=== PATIENT | female | born 1930 | race Caucasian/White ===

== ENCOUNTER 2017-05-24 12:40 | Inpatient (IN) | payer MEDICARE, BC ==
--- NOTE | ~2017-05-24 | EKG ---
PATIENT: VIRI TAYLOR UNIT #: [id number] Ventricular Rate: 108 BPM Atrial Rate: 101 BPM QRS Duration: 80 ms Q-T Interval: 366 ms QTC Calculation(Bezet): 490 ms Calculated R Downey: 99 degrees Calculated T Downey: -9 degrees Diagnosis Line: Atrial fibrillation with rapid ventricular Diagnosis Line: response with premature ventricular or aberrantly Diagnosis Line: conducted complexes Diagnosis Line: Rightward axis Diagnosis Line: Abnormal QRS-T angle, consider primary T wave Diagnosis Line: abnormality Diagnosis Line: Abnormal ECG Diagnosis Line: When compared with ECG of 24-MAY-2017 12:53, Diagnosis Line: (unconfirmed) Diagnosis Line: Questionable change in QRS axis Diagnosis Line: Confirmed by DESTINY DEAN MD ([id number]) on Diagnosis Line: 05/26/2017 10:03:05 AM INTERPRETING MD: YOLANDA
--- NOTE | ~2017-05-24 | DS ---
Unit #: [id number] #: [id number] Patient: VIRI TAYLOR [id number] [address] [address] [id number] I MR#: [id number] NAME: VIRI TAYLOR. ROOM: 556 Age: 87 Sex: F Admission Date: 05/24/2017 : 1930 Discharge Date: 05/27/2017 Attending Physician: Dmitriy Corral M.D. Primary Care Physician: Herbie Winchester M.D. DISCHARGE SUMMARY DISCHARGE DIAGNOSES 1. Acute on chronic diastolic congestive heart failure, now compensated. 2. Permanent atrial fibrillation, on chronic anticoagulation with Savaysa. 3. 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 4. Hypertension. 5. Hyperlipidemia. 6. History of chronic kidney disease. 7. History of esophageal strictures. 8. Mild anemia. HOSPITAL COURSE The patient presented to the hospital with multiple complaints, however, more specifically shortness of breath and weakness. She was admitted for CHF exacerbation and persistent atrial fibrillation with rapid ventricular response. She was given Cardizem IV, as well as started on IV diuretics. The patient was placed on strict I/Os. In the emergency department, initial EKG revealed atrial fibrillation with RVR at 129 beats per minute. BNP was elevated at 425. Initial cardiac enzymes were negative. Chest x-ray revealed bibasilar densities representing edema versus pneumonia. According to the note, the patient quit taking her Savaysa due to new onset symptoms including weakness, confusion, and appetite issues, and states she had not been taking it for the last two weeks prior to her admission. She has been on Eliquis in the hospital here at 2.5 mg p.o. b.i.d. and appears to be tolerating that without any complications. She has been seen and evaluated by Dr. Kern today. He feels she is stable for discharge home. Serial enzymes throughout this admission remained indeterminant. Patient denies any complaints of chest pain. During the hospitalization, she was started on digoxin. She received a loading dose and is currently on 0.125 mg tablet p.o. daily. Her metoprolol succinate that she was on at home was also increased to 50 mg p.o. b.i.d. CONSULTANTS None. Unit #: [id number] #: [id number] Patient: VIRI TAYLOR DIAGNOSTIC STUDIES LABORATORY: Glucose 93, BUN 37, creatinine 1.2, sodium 137, potassium 4.5, chloride 102, and CO2 of 28. Magnesium is 1.4, and that will be replaced. Troponins were indeterminant, highest was 0.07. TSH was 3.12. Fasting lipid profile was unremarkable except for an HDL of 31. Hemoglobin 10.9, hematocrit 34.6, WBC 4.2, and platelet count 120,000. Telemetry remains atrial fibrillation with controlled ventricular rate. PHYSICAL EXAMINATION VITAL SIGNS: Temperature 98.4, respiratory rate 16, pulse 82-104, and blood pressure 134/81. GENERAL: Patient is awake, alert, and oriented. She follows commands appropriately. She moves all extremities equally. HEENT: Pupils are equal and reactive. NECK: Supple. No JVD, no hepatojugular reflux. Normal carotid upstrokes. No carotid bruits. HEART: S1 and S2, irregularly irregular. No murmur, gallop, or rub. LUNGS: Clear to auscultation. No rales, rhonchi, or wheezes. ABDOMEN: Soft, nontender, and nondistended. Bowel sounds are present. EXTREMITIES: Pulses are palpable. No clubbing, cyanosis, or edema is noted. DISCHARGE INSTRUCTIONS The patient has been seen and evaluated by Dr. Kern today. He feels she is stable for discharge home today. She has someone who stays with her and checks on her frequently at home. During the hospitalization, her metoprolol succinate was increased to 50 mg p.o. b.i.d., and her potassium was discontinued. She was also started on digoxin, and she will be sent home with this on an oral dose of 0.125 with a digoxin level prior to discharge. The patient's blood pressure and heart rate have been stable. According to the note, she had been on Savaysa at home but had quit taking it secondary to GI issues. She was changed over to Eliquis during this hospitalization and has appeared to tolerate it without any difficulty. Will send her home on Eliquis 2.5 mg p.o. b.i.d. She currently appears euvolemic and will also go home with diuretics. She was advised to follow up with Dr. Kern in three to four weeks and follow up with her primary care physician in one week. The patient was also advised on signs and symptoms of congestive heart failure and when to call the office. Also, it is of note that I spoke with the son, Spenser. They do not feel she is stable to go home secondary to falling and inability to be taken care of 24/7. They would prefer the patient to be sent out to [facility]. Case Management has been notified, and they are currently working on bed placement. It is also notable that patient had stated prior that she is to follow up with Dr. Kern. But after discussion with the son, Spenser, and the patient, they do not want to see Dr. Kern and would prefer to be followed by Dr. Parra. She has followup scheduled for July 02 at 2:[address] Parra at the [facility] [place] office. She is stable to be discharged to rehab from a cardiovascular standpoint. Unit #: [id number] #: [id number] Patient: VIRI TAYLOR DISCHARGE MEDICATIONS 1. Eliquis 2.5 mg p.o. daily. The reason the patient is on this amount is had had issues with the 5 mg p.o. daily reported per the son and the patient. She had also had issues with Savaysa at home. 2. Digoxin 0.125 mg p.o. daily. 3. Metoprolol succinate XL 50 mg p.o. b.i.d. 4. Bumex 1 mg p.o. q.a.m. 5. Atorvastatin 20 mg p.o. at bedtime. 6. Ocuvite lutein capsule 1 p.o. daily. Upon further discussion with the patient, the patient had intolerances to Savaysa, as well as mental status change. She also had difficulty with the higher dose of Eliquis and therefore has been on the 2.5 mg p.o. b.i.d. dosing and has tolerated well. The patient will be continued on this dose. Dictated by... Tyson Adkins/oma TD: 05/27/2017 15:42 JOB #: [id number] Dictated by... Tyson Adkins TD: 05/27/2017 16:22 JOB #: [id number] DISCHARGE SUMMARY Page 1 of 1 X Marilou Olsen APRN X DISCHARGE SUMMARY
--- NOTE | ~2017-05-24 | CR72 ---
[facility] A Service of [facility] RADIOLOGY TEXT RESULTS PATIENT: VIRI TAYLOR LOCATION: [facility] : [birth year] UNIT #: [id number] AGE: [address]: Fletcher Friedman MD SEX: F ORDER DR: [id number] [facility] [address] [place], [place] [address] [id number] MR#: [id number] Acc #: [id number] NAME: VIRI TAYLOR. : 1930 SEX: F STUDY DATE/TIME: 05/24/2017 UNIT: [facility] ROOM: STUDY DESCRIPTION: CR Chest Single View Portable Attending Physician: Fletcher Friedman M.D. Ordering Physician: Fletcher Friedman M.D. Primary Care Physician: Herbie Winchester M.D. MEDICAL IMAGING REPORT This report is preliminary unless electronic signature is present EXAM Chest portable, 05/24/2017, 1333 hours. HISTORY 87-year-old woman with shortness of air and weakness today. History of prior CVA, hypertension. COMPARISON 02/21/2017 FINDINGS Portable upright chest demonstrates lower lung volumes than on the prior study. There is stable cardiomegaly and tortuous aorta. There is perihilar vascular crowding. There is hazy density at both lung bases with new blunting of both costophrenic sulci. IMPRESSION 1. Stable cardiomegaly and tortuous aorta. 2. There are new hazy bibasilar densities with blunting of both costophrenic sulci representing a change from 02/21/2017. Findings suggest new bilateral pleural effusions. Basilar densities could represent atelectasis, basilar edema or basilar pneumonia. Dictated by... Mariam Johnson M.D. THIS IS AN ELECTRONICALLY VERIFIED REPORT Mariam Johnson M.D. at 05/24/2017 5:18 PM Terry TD: 05/24/2017 16:49 [facility] A Service of [facility] RADIOLOGY TEXT RESULTS PATIENT: VIRI TAYLOR LOCATION: [facility] : [birth year] UNIT #: [id number] AGE: [address]: Fletcher Friedman MD SEX: F ORDER DR: JOB #: [id number] MEDICAL IMAGING REPORT Page 1 of 1 COPY
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
--- NOTE | ~2017-05-24 | EKG ---
PATIENT: VIRI TAYLOR UNIT #: [id number] Ventricular Rate: 129 BPM Atrial Rate: 131 BPM QRS Duration: 82 ms Q-T Interval: 360 ms QTC Calculation(Bezet): 527 ms Calculated R Kell: -23 degrees Calculated T Kell: -9 degrees Diagnosis Line: Atrial fibrillation with rapid ventricular Diagnosis Line: response with premature ventricular or aberrantly Diagnosis Line: conducted complexes Diagnosis Line: Abnormal ECG Diagnosis Line: When compared with ECG of 20-FEB-2016 09:55, Diagnosis Line: Atrial fibrillation has replaced Sinus rhythm Diagnosis Line: Vent. rate has increased BY 78 BPM Diagnosis Line: Confirmed by DESTINY DEAN MD ([id number]) on Diagnosis Line: 05/26/2017 9:54:13 AM INTERPRETING KARAN GUERRERO
[~2017-05-24 12:40] MED LIST: ALLOPURINOL300 MG PO; ANEXSIA 7.5/3251 TA1 PO; ASPIRIN ENTERI325 M1 PO; ATENOLOL PO; ATENOLOL50 MG PO; CELEBREX PO; CELEBREX100 MG PO; CENTRUM SILVER PO; CENTRUM SILVER1 EAC2 PO; HYDROCODONE/APA1 T16 PO; LANSOPRAZOLE30 MG PO; NEURONTIN100 MG PO; NORCO 10/325 TA1 TAB PO; NORCO 7.5-3251 EACH PO; OCUVITE LUTEIN1 CA1 PO; OCUVITE SOFTGEL1 CA1 PO; PANTOPRAZOLE SO40 MG PO; PRAVACHOL20 MG PO; PRAVASTATIN SOD20 MG PO; PRILOSEC40 MG PO; TRIAMTERENE-HC1 EACH PO; ZYLOPRIM100 MG PO
[2017-05-24 14:24] LABS: BASOPHIL# 0.1 X10e3 (0-0.3); BASOPHIL% 1.7 % (0-2.5); EOSINOPHIL# 0.1 X10e3 (0-0.7); EOSINOPHIL% 2.2 % (0.0-7.0); HEMATOCRIT 35.5 % (35.0-45.0); HEMOGLOBIN 11.3 gm/dL (12.0-16.0); LYMPHOCYTE# 0.5 X10e3 (1.0-3.5); LYMPHOCYTE% 12.8 % (17.0-45.0); MEAN CELL VOLUME 93.2 FL (83-96); MEAN CORPUSCULAR HEMOGLOBIN 29.7 PG (28-34); MEAN CORPUSCULAR HGB CONC 31.9 g/dL (30-36); MEAN PLATELET VOLUME 8.4 FL (6.5-11.5); MONOCYTE# 0.7 X10e3 (0-1.0); MONOCYTE% 17.9 % (3.0-12.0); NEUTROPHIL# 2.7 X10e3 (1.5-7.1); NEUTROPHIL% 65.4 % (40-75); PLATELET COUNT 122 X10e3 (140-420); RED BLOOD COUNT 3.81 X10e (3.90-5.30); RED CELL DISTRIBUTION WIDTH 16.3 % (11.0-15.5); WHITE BLOOD COUNT 4.2 X10e3 (4.0-10.5)
[2017-05-24 14:26] LABS: DIFF IND NO
[2017-05-24 14:27] LABS: POC - CKMB <1.0 ng/mL (0.0-7.9); POC - TROPONIN <0.05 ng/mL (<=0.05)
[2017-05-24 14:41] LABS: INR 1.1; PARTIAL THROMBOPLASTIN TIME 25.9 SECONDS (23.5-31.3); PROTHROMBIN TIME (PATIENT) 12.2 SECONDS (10.0-11.7)
[2017-05-24 14:49] LABS: ALBUMIN SERUM 3.8 g/dL (3.5-5.0); BILIRUBIN, DIRECT 0.2 mg/dL (0.0-0.2); BILIRUBIN,INDIRECT 0.9 mg/dL (0.0-0.9); BILIRUBIN,TOTAL 1.1 mg/dL (0.2-2.0); CALCIUM SERUM 8.9 mg/dL (8.4-10.2); CREATININE SERUM 0.9 mg/dL (0.6-1.4); GLOM FILT RATE Estimated 56.7 mL/min (>60); POTASSIUM 4.1 mmol/L (3.5-5.1); PROTEIN TOTAL SERUM 6.6 g/dL (6.0-8.3)
[2017-05-24] MEDS ORDERED: LIPITOR20 MG PO (15:27)
[2017-05-24] MEDS ORDERED: BUMEX1 MG PO (15:27)
[2017-05-24] MEDS ORDERED: METOPROLOL SUCC25 MG PO (15:27)
[2017-05-24] MEDS ORDERED: SAVAYSA30 MG PO (15:28)
[2017-05-25 01:18] LABS: CK TOTAL 35 IU/L (26-140)
[2017-05-25 07:17] LABS: HEMATOCRIT 34.6 % (35.0-45.0); HEMOGLOBIN 10.9 gm/dL (12.0-16.0); MEAN CELL VOLUME 93.8 FL (83-96); MEAN CORPUSCULAR HEMOGLOBIN 29.6 PG (28-34); MEAN CORPUSCULAR HGB CONC 31.5 g/dL (30-36); MEAN PLATELET VOLUME 8.9 FL (6.5-11.5); RED BLOOD COUNT 3.68 X10e (3.90-5.30); RED CELL DISTRIBUTION WIDTH 16.8 % (11.0-15.5); WHITE BLOOD COUNT 4.2 X10e3 (4.0-10.5)
[2017-05-25 07:41] LABS: CK TOTAL 31 IU/L (26-140)
[2017-05-25 08:07] LABS: CALCIUM SERUM 8.7 mg/dL (8.4-10.2); GLOM FILT RATE Estimated 49.9 mL/min (>60); POTASSIUM 4.3 mmol/L (3.5-5.1)
[2017-05-26 06:59] LABS: BUN/CREATININE RATIO 28.18; CALCIUM SERUM 9.1 mg/dL (8.4-10.2); CREATININE SERUM 1.1 mg/dL (0.6-1.4); GLOM FILT RATE Estimated 44.5 mL/min (>60); POTASSIUM 4.2 mmol/L (3.5-5.1)
[2017-05-27 08:56] LABS: BUN/CREATININE RATIO 30.83; CALCIUM SERUM 8.9 mg/dL (8.4-10.2); CREATININE SERUM 1.2 mg/dL (0.6-1.4); MAGNESIUM 1.4 mg/dL (1.6-3.0); POTASSIUM 4.5 mmol/L (3.5-5.1)
== END 2017-05-27 17:05 | DRG 291 ==
LOC: CED 12:40 → CEDOF 16:41 → C5B 16:41 → CED 17:24 → CEDOF 17:24 → C5B 19:19
PROVIDERS: Emergency Medicine; Internal Medicine Cardiovascular Disease
DX: I13.0 Hypertensive heart and chronic kidney disease with heart failure and stage 1 through stage 4 chronic kidney disease, or unspecified chronic kidney disease (principal); I50.33 Acute on chronic diastolic (congestive) heart failure; D69.6 Thrombocytopenia, unspecified; I48.2 Chronic atrial fibrillation; G62.9 Polyneuropathy, unspecified; N18.3 Chronic kidney disease, stage 3 (moderate); D64.9 Anemia, unspecified; Z79.01 Long term (current) use of anticoagulants; E78.5 Hyperlipidemia, unspecified; I08.1 Rheumatic disorders of both mitral and tricuspid valves
CPT/HCPCS: 36415; 71010; 80048; 80061; 80076; 80162; 82550; 82553; 83735; 83880; 84443; 84484; 85025; 85027; 85610; 85730; 90732; 93005; 96361; 96374; 96375; 97161; 97167; 99285; G0009; G8978-GP; G8979-GP; G8980-GP; G8987-GO; G8988-GO; G8989-GO; J1160

== ENCOUNTER 2017-06-19 09:37 | Emergency (ER) | payer MEDICARE, BC ==
--- NOTE | ~2017-06-19 | CR282 ---
[facility] A Service [facility] RADIOLOGY TEXT RESULTS PATIENT: VIRI TAYLOR LOCATION: SED : [birth year] UNIT #: [id number] AGE: [address]: ANNEMARIE VICTOR SEX: F ORDER DR: [id number] [address] [id number] E MR#: [id number] Acc #: [id number] NAME: VIRI TAYLOR : 1930 SEX: F STUDY DATE/TIME: 06/19/2017 10:09 UNIT: SED ROOM: STUDY DESCRIPTION: CR Wrist Min 3 View Rt Attending Physician: Annemarie Victor Aprn Ordering Physician: Annemarie Victor Aprn Primary Care Physician: Herbie Winchester M.D. MEDICAL IMAGING REPORT This report is preliminary unless electronic signature is present. EXAM Right wrist, 3 views. INDICATION Right wrist pain and swelling since last night. No injury. COMPARISON No comparisons. FINDINGS There is extensive degenerative change of the wrist. There is carpal collapse and collapse of the lunate. There is cystic change at multiple carpal bones. There is near-complete loss of the radiocarpal joint. Degenerative change at the DRUJ. Cystic change in the ulnar styloid. Extensive degenerative change at the base of the thumb. No definite fracture. IMPRESSION Extensive degenerative changes involving the wrist as described. No definite acute finding. Dictated by... Lucas Plasencia M.D. THIS IS AN ELECTRONICALLY VERIFIED REPORT Lucas Plasencia M.D. at 06/21/2017 8:00 AM ZURI/elis TD: 06/19/2017 11:55 JOB #: [id number] [facility] A [facility] RADIOLOGY TEXT RESULTS PATIENT: VIRI TAYLOR LOCATION: SED : [birth year] UNIT #: [id number] AGE: [address]: ANNEMARIE VICTOR SEX: F ORDER DR: MEDICAL IMAGING REPORT Page 1 of 1
[~2017-06-19 09:37] MED LIST changes: +BUMEX1 MG PO; +LIPITOR20 MG PO; +METOPROLOL SUCC25 MG PO; +SAVAYSA30 MG PO
[2017-06-19] MEDS ORDERED: ELIQUIS2.5 MG (09:43)
[2017-06-19] MEDS ORDERED: LANOXIN125 MCG (09:43)
[2017-06-19] MEDS ORDERED: POTASSIUM CHLO10 ME2 PO (09:43)
== END 2017-06-19 10:55 | disposition home or self-care (01) ==
LOC: SED 09:37
DX: S63.501A Unspecified sprain of right wrist, initial encounter (principal); N18.9 Chronic kidney disease, unspecified; K57.92 Diverticulitis of intestine, part unspecified, without perforation or abscess without bleeding; Z86.79 Personal history of other diseases of the circulatory system; Z86.73 Personal history of transient ischemic attack (TIA), and cerebral infarction without residual deficits; Z79.899 Other long term (current) drug therapy; X58.XXXA Exposure to other specified factors, initial encounter; Y92.9 Unspecified place or not applicable
CPT/HCPCS: 29260; 73110; 99283